=== PATIENT | male | born 1945 | race Hispanic/Latino ===

== ENCOUNTER → 2019-03-03 | Outpatient (CLI) | payer MEDICARE | END | disposition home or self-care (01) | LOC: OIH 09:15 | PROVIDERS: ATTEND Internal Medicine | DX: M19.032 Primary osteoarthritis, left wrist (principal); M19.031 Primary osteoarthritis, right wrist; M19.042 Primary osteoarthritis, left hand; M19.041 Primary osteoarthritis, right hand; M77.32 Calcaneal spur, left foot; M77.31 Calcaneal spur, right foot; M85.642 Other cyst of bone, left hand; M85.641 Other cyst of bone, right hand; I70.202 Unspecified atherosclerosis of native arteries of extremities, left leg; I70.201 Unspecified atherosclerosis of native arteries of extremities, right leg; M79.89 Other specified soft tissue disorders | CPT/HCPCS: 73130; 73630 ==

== ENCOUNTER 2022-09-10 07:00 | Day surgery (SDC) | payer MEDICARE ==
[2022-09-08 14:43] LABS: BASOPHILS % (AUTO) 0.5 % (0.0-5.0); EOSINOPHILS % (AUTO) 5.4 % (0.0-8.0); HEMATOCRIT 32.9 % (42-54); LYMPHOCYTES % (AUTO) 29.6 % (21.0-51.0); MEAN CORPUSCULAR HEMOGLOBIN 28.1 pg (27.0-33.0); MEAN CORPUSCULAR HGB CONC 32.8 g/dL (32.0-36.0); MEAN CORPUSCULAR VOLUME 85.5 fL (79-99); MONOCYTES % (AUTO) 7.4 % (3.0-13.0); PLATELET COUNT (AUTO) 257 K/uL (130-400); RED BLOOD CELL COUNT(AUTO) 3.85 MIL/uL (4.50-6.20); WHITE BLOOD COUNT (AUTO) 7.4 K/uL (4.8-10.8)
[2022-09-08 14:51] VITALS: BP 133/61
[2022-09-08 15:14] LABS: CREATININE 1.7 mg/dL (0.5-1.5); POTASSIUM 4.2 mmol/L (3.5-5.1)
[~2022-09-10] VITALS: Ht 167.6 cm; Wt 59.8 kg
[2022-09-10] VITALS (19 sets, daily range): BP systolic 86–137; BP diastolic 46–83
[~2022-09-10 07:00] MED LIST: AMLO2.5T4 PO; ATOR10 PO; BENA-8 PO; CEFAZOLIN SODIUM 1 GM VIAL IVPB PRN; GABA-533 PO; LACTATED RINGERS 1000ML 1,000 ML IV SCH
[2022-09-10] MEDS ORDERED: CEFAZOLIN SODIUM 2 GM VIAL ONE (07:22)
[2022-09-10] MEDS ORDERED: PROPOFOL 10 MG/ML 20ML VIAL IV ONE (09:17)
[2022-09-10] MEDS ORDERED: FENTANYL CITRATE PF 50 MCG/1 ML 2ML VIAL ONE (09:17)
[2022-09-10] MEDS ORDERED: MIDAZOLAM HCL 1 MG/ML 2ML VIAL ONE (09:17)
[2022-09-10] MEDS ORDERED: BUPIVACAINE/PF 0.5% 30ML VIAL ONE (09:33)
== END 2022-09-10 11:45 | disposition home or self-care (01) ==
LOC: DAH 07:00
PROVIDERS: ATTEND Surgery
DX: L72.3 Sebaceous cyst (principal); Z20.822 Contact with and (suspected) exposure to COVID-19; L72.0 Epidermal cyst; I10 Essential (primary) hypertension; M06.9 Rheumatoid arthritis, unspecified; E78.00 Pure hypercholesterolemia, unspecified; Z98.890 Other specified postprocedural states; Z98.49 Cataract extraction status, unspecified eye; Z83.3 Family history of diabetes mellitus; Z79.899 Other long term (current) drug therapy
CPT/HCPCS: 93005; 87426; 80048; 85025; 36415; 11404; A6260; A4663; A4606; J7120; J3010; J2250; J2704; J3490; J0690; A4215; A4223; A4222; A4221; A4600